=== PATIENT | female | born 1975 | race African-American/Black ===

== ENCOUNTER 2017-06-07 17:59 | Emergency (ER) | payer SELFPAY ==
[~2017-06-07] VITALS: Ht 175.3 cm; Wt 95.0 kg
[2017-06-07 18:00] VITALS: BP 175/98; PULSE 73; RESP 15; TEMP 98.4; O2SAT 100
--- NOTE | 2017-06-07 18:21 | PD ---
HPI Chief Complaint: Fall Time Seen by Provider: 18:15 Travel History International Travel<30 days: No Contact w/Intl Traveler<30days: No Traveled to known affect area: No History of Present Illness HPI Patient comes in complaining of right foot pain that began yesterday tripped into a brick flower bed causing the injury. Patient describes pain as sharp stabbing like in nature and radiates throughout her foot. Pain is mainly over the lateral aspect of the right foot. Pain is worse with walking and palpation. Patient took a pain pill last night that seemed to help. Denies falling to the ground, hitting her head, , or loss of consciousness PFSH Past Medical History Medical History: Denies Significant Hx Social History Alcohol Use: Yes Tobacco Use: Yes Substance Use: No Allergies-Medications (Allergen,Severity, Reaction): Coded Allergies: No Known Allergies (Unverified , 06/07/17) Review of Systems Except as stated in HPI: all other systems reviewed are Neg Physical Exam Narrative GENERAL: Well-developed, well nourished, in no acute distress, and non-ill appearing. SKIN: Focused skin assessment warm and dry. HEAD: Atraumatic. Normocephalic. EYES: Pupils equal and round. EOMI. No scleral icterus. No injection or drainage. ENT: No nasal bleeding or discharge. Mucous membranes pink and moist. NECK: Trachea midline. Supple. No nuclear rigidity. CARDIOVASCULAR: Dorsal pulses 2+, intact, and equal bilaterally. Capillary refill less than 2 seconds. RESPIRATORY: No accessory muscle use. No respiratory distress. MUSCULOSKELETAL: No obvious deformities. No clubbing. No cyanosis. No edema. Full range of motion. Ankle: Neagative anterior draw and Wall test. Negative Isabella's sign. No laxity noted with passive inversion and eversion of BL ankles. Negative squeeze test. Pulses equal BL distal to injury. Capillary refill less than 2 seconds distal to injury and equal BL. Sensation equal BL 1st web space. FROM of toes distal to injury and equal BL. NV intact distal to injury and equal BL. Dorsal pulses equal BL. Patient reports that his palpation over lateral aspect of right foot greatest over mid metatarsal. There is no crepitus. NEUROLOGICAL: Awake and alert. No obvious cranial nerve deficits. Motor grossly within normal limits. Normal speech. PSYCHIATRIC: Appropriate mood and affect; insight and judgment normal. Data Data Last Documented VS Vital Signs Date Time Temp Pulse Resp B/P (MAP) Pulse Ox O2 Delivery O2 Flow Rate FiO2 06/07/17 18:47 06/07/17 18:00 98.4 73 15 100 Orders Orders Foot, Complete ([id number]) (06/07/17 ) Splint Or Brace Apply/Monitor (06/07/17 18:38) MDM Medical Decision Making Medical Screen Exam Complete: Yes Emergency Medical Condition: Yes Interpretation(s) X-ray of the right foot read by myself shows a minimally displaced proximal phalanx fracture fifth toe. To be over read by the radiologist. Differential Diagnosis Fracture, sprain, contusion, other Narrative Course The patient sustained a fracture of the toe. The distal extremity appears neurovascularly intact, without evidence of neurovascular injury nor compartment syndrome. Tendon exam also was intact. The effected toe was aleyda taped and patient was placed in a postop shoe. The patient was discharged with fracture and splint care instructions and given warnings for vascular compromise. The patient is to follow up with podiatry. The patient agrees with plan. Patient in no obvious distress upon re-evaluation. All pertinent Radiology result(s) discussed with patient. Any questions/concerns in reference to patient diagnosis/condition discussed and clarified prior to patient's discharge. Reinforced sheer importance of close follow up with patient's primary physician or primary care clinic and/or maintenance tech. Instructed patient to return to ED immediately, if symptoms return/worsen. Patient showed understanding of above instructions. Further instructions and recommendations were detailed in discharge paperwork. Patient ambulated without difficulty out of ED at discharge. Diagnosis Primary Impression: Toe fracture, right Qualified Codes: S92.511A - Displaced fracture of proximal phalanx of right lesser toe(s), initial encounter for closed fracture Referrals: Mara Bryson DPM 1 week Patient Instructions: General Instructions, Toe Fracture (ED) Additional Instructions: Follow-up with your primary care physician and/or maintenance tech next week for reevaluation. Use [id number] Tylenol and/or appropriate as needed for pain. Follow instructions on the packaging. Apply ice to affected area 20 minutes prior as needed for pain. Keep ear pinky toe aleyda taped to the adjacent toe protection improper healing. Change tape as needed. Wear postop shoe for comfort as needed. Return to the emergency department if symptoms get worse. Disposition: 01 DISCHARGE HOME Condition: Stable Cedrick Castillo Jun 07, 2017 18:21
--- NOTE | 2017-06-07 19:00 | RADRPT ---
EXAM DATE/TIME: 06/07/2017 18:29 [facility] COMPARISON: No previous studies available for comparison. INDICATIONS : Patient complains of right foot pain after kicking brick yesterday while walking. Pain on lateral keeley t near 5th metatarsal. MEDICAL HISTORY : None. SURGICAL HISTORY : None. ENCOUNTER: Initial ACUITY: 2 days PAIN SCORE: 7/10 LOCATION: Right Foot FINDINGS: There is evidence of an acute mildly displaced oblique fracture involving the mid shaft of the right fifth proximal phalanx. CONCLUSION: Acute mildly displaced oblique mid shaft fracture involving the right fifth proximal phalanx. Jean Carlos Douglas MD on June 07, 2017 at 18:49 Board Certified Radiologist. This report was verified electronically.
== END 2017-06-07 19:17 | disposition home or self-care (01) ==
LOC: NEPK 17:59
DX: S92.511A Displaced fracture of proximal phalanx of right lesser toe(s), initial encounter for closed fracture (principal); W22.09XA Striking against other stationary object, initial encounter; Y93.01 Activity, walking, marching and hiking
CPT/HCPCS: 73630; 99283; L3260